=== PATIENT | female | born 1985 | race Two or more races ===

== ENCOUNTER 2018-08-02 00:24 | Emergency (ER) | payer SELFPAY ==
[~2018-08-02] VITALS: Ht 165.1 cm; Wt 99.8 kg
[2018-08-02 00:34] VITALS: BP 120/79
== END 2018-08-02 04:37 | disposition left against medical advice (07) ==
LOC: ER 00:34
DX: R21 Rash and other nonspecific skin eruption (principal); Z53.21 Procedure and treatment not carried out due to patient leaving prior to being seen by health care provider